=== PATIENT | male | born 1960 | race Caucasian/White ===

== ENCOUNTER 2018-01-19 12:04 | Inpatient (IN) | payer BC ==
[2018-01-19 13:01] VITALS: BMI 31.1
--- NOTE | 2018-01-19 17:12 | HP ---
CIWA Score - CIWA Score Nausea/Vomitin-Mild Nausea/No Vomiting Muscle Tremors: 4-Moderate,w/Arms Extend Anxiety: 4-Mod. Anxious/Guarded Agitation: 4-Moderately Restless Paroxysmal Sweats: 1-Minimal Palms Moist Orientation: 0-Oriented Tacttile Disturbances: 0-None Auditory Disturbances: 0-None Visual Disturbances: 0-None Headache: 0-None Present CIWA-Ar Total Score: 14 Admission ROS S - HPI Chief Complaint: Alcohol withdrawal symptoms Allergies/Adverse Reactions: Allergies Allergy/AdvReac Type Severity Reaction Status Date / Time No Known Allergies Allergy Verified 01/19/18 15:38 History of Present Illness: 57 years old male with a long history of alcohol dependence is seeking admission to detox. Patient has been to previous detox at [facility] and reports 3 years of sobriety. He was discharged from [facility] where he was seen with complaint of left lower extremity pain and swelling. He has medical history of HTN And seizure. This is his first admission to [facility]. He denies suicide attempt and suicidal ideation at this time. His drug screen result was positive for benzodiazepine but he denies use and states that it may have been from his marijuana. - Ebola screening Have you traveled outside of the country in the last 21 days: No (N) Have you had contact with anyone from an Ebola affected area: No Have you been sick,other than usual withdrawal symptoms: No Do you have a fever: No - Review of Systems Constitutional: Chills, Loss of Appetite, Malaise, Night Sweats, Changes in sleep EENT: reports: No Symptoms Reported, Other (uses prescription glasses) Respiratory: reports: No Symptoms reported Cardiac: reports: No Symptoms Reported GI: reports: Nausea, Poor Appetite, Poor Fluid Intake, Abdominal cramping : reports: No Symptoms Reported Musculoskeletal: reports: Back Pain, Muscle Pain Integumentary: reports: Dryness Neuro: reports: Seizure, Tingling, Tremors Endocrine: reports: No Symptoms Reported Hematology: reports: No Symptoms Reported Psychiatric: reports: Orientated x3, Anxious Other Systems: Reviewed and Negative Patient History - Patient Medical History Hx Anemia: No Hx Asthma: No Hx Chronic Obstructive Pulmonary Disease (COPD): No Hx Cancer: No Hx Cardiac Disorders: No Hx Congestive Heart Failure: No Hx Hypertension: Yes (Lisinopril) Hx Hypercholesterolemia: No HX Cerebrovascular Accident: No Hx Seizures: Yes (Not on medication) Hx Diabetes: No Hx Gastrointestinal Disorders: No Hx Liver Disease: No Hx Genitourinary Disorders: No Hx Sexually Transmitted Disorders: No Hx Renal Disease (ESRD): No Hx Thyroid Disease: No Hx Human Immunodeficiency Virus (HIV): No (Negative 2017) Hx Hepatitis C: No Hx Depression: No Hx Suicide Attempt: No (Denies suicide attempt and suicidal ideation at this time) Hx Bipolar Disorder: No Hx Schizophrenia: No - Patient Surgical History Past Surgical History: Yes Hx Neurologic Surgery: No Hx Cataract Extraction: No Hx Cardiac Surgery: No Hx Lung Surgery: No Hx Abdominal Surgery: No Hx Appendectomy: No Hx Cholecystectomy: No Hx Genitourinary Surgery: No Hx Orthopedic Surgery: Yes (L ANKLE SX AND R TIBIA) Anesthesia Reaction: No - PPD History Previous Implant?: Yes Documented Results: Negative w/o proof Implanted On Prior [facility] Admission?: No PPD to be Administered?: Yes - Reproductive History Patient is a Female of Child Bearing Age (11 -55 yrs old): No (MALE) - Smoking Cessation Smoking history: Current every day smoker Have you smoked in the past 12 months: Yes Aproximately how many cigarettes per day: 20 Hx Chewing Tobacco Use: No Initiated information on smoking cessation: Yes 'Breaking Loose' booklet given: 01/19/18 - Substance & Tx. History Hx Alcohol Use: Yes Hx Substance Use: Yes Substance Use Type: Marijuana Hx Substance Use Treatment: Yes ([facility]) - Substances Abused Alcohol Route: Oral Frequency: Daily Amount used: 20/16OZ BEER Age of first use: 13 Date of Last Use: 01/19/18 Marijuana/Hashish Route: Smoking Frequency: 1-2 times per week Amount used: 2 Joints Age of first use: 15 Date of Last Use: 01/18/18 Family Disease History - Family Disease History Family History: Denies Admission Physical Exam [facility] - Vital Signs Vital Signs: Vital Signs - 24 hr 01/19/18 12:56 Temperature 97.0 F L Pulse Rate 73 Respiratory 20 Rate Blood Pressure 163/105 - Physical General Appearance: Yes: Moderate Distress HEENTM: Yes: EOMI, Normal ENT Inspection, Normal Voice, JESUS Respiratory: Yes: Lungs Clear, Normal Breath Sounds, No Respiratory Distress Neck: Yes: Supple Breast: Yes: Breast Exam Deferred Cardiology: Yes: Regular Rhythm, Regular Rate, S1, S2 Abdominal: Yes: Protuberent Genitourinary: Yes: Within Normal Limits Back: Yes: Normal Inspection Musculoskeletal: Yes: Back pain (lower), Muscle Pain Extremities: Yes: Tremors, Other (left lower extremities swelling) Neurological: Yes: Alert, Normal Mood/Affect Integumentary: Yes: Dry Lymphatic: Yes: Within Normal Limits - Diagnostic (1) Alcohol dependence with uncomplicated withdrawal Current Visit: Yes Status: Chronic (2) Hypertension Current Visit: Yes Status: Chronic (3) Seizures Current Visit: Yes Status: Chronic (4) Nicotine dependence Current Visit: Yes Status: Chronic Cleared for Admission [facility] - Detox or Rehab [facility] Level of Care: Medically Managed Detox Regimen/Protocol: Librium S Breath Alcohol Content Breath Alcohol Content: 0 Urine Drug Screen - Results Drug Screen Negative: No Urine Drug Screen Results: THC-Marijuana, BZO-Benzodiazepines
[2018-01-19] MEDS ORDERED: LOPERAMIDE HCL 2 MG CAPSULE PO PRN (17:34)
[2018-01-19] MEDS ORDERED: MAG HYDROX/AL HYDROX/SIMETH 30 ML UNIT-DOSE CUP PO PRN (17:34)
[2018-01-19] MEDS ORDERED: MAGNESIUM HYDROX 2400MG/30ML ORAL SUSPENSION 30 ML CUP PO PRN (17:34)
[2018-01-19] MEDS ORDERED: MENTHOL/PHENOL 1 EACH UD MM PRN (17:34)
[2018-01-19] MEDS ORDERED: chlordiazePOXIDE HCL 25 MG CAPSULE PO PRN (17:34)
[2018-01-19] MEDS ORDERED: P-EPHED 60MG/TRIPROLIDI 2.5MG TABLET PO PRN (17:34)
[2018-01-19] MEDS ORDERED: ACETAMINOPHEN 325 MG TABLET (FP) PO PRN (17:34)
[2018-01-19] MEDS ORDERED: MAGNESIUM CITRATE 300 ML BOTTLE PO PRN (17:34)
[2018-01-19] MEDS ORDERED: NICOTINE POLACRILEX 2 MG GUM BC PRN (17:34)
[2018-01-19] MEDS ORDERED: guaiFENesin/D-METHORPHAN HB 10 ML UNIT-DOSE CUPS PO PRN (17:34)
[2018-01-19] MEDS ORDERED: cloNIDine HCL 0.1 MG TABLET PO ONE (17:37)
[2018-01-19] MEDS: chlordiazePOXIDE HCL 25 MG CAPSULE PO SCH ×2 (18:14→22:54)
[2018-01-19] MEDS ORDERED: MELATONIN 5 MG TABLETS PO PRN (22:00)
[2018-01-19] MEDS: THIAMINE HCL 100 MG TABLET (FP) PO SCH (22:54)
[2018-01-20 01:19] LABS: URINE APPEARANCE CLEAR; URINE BILIRUBIN NEGATIVE (<2.0 mg/dL); URINE BLOOD NEGATIVE (NEGATIVE); URINE COLOR YELLOW; URINE GLUCOSE (UA) 3+ (NEGATIVE); URINE KETONE TRACE (NEGATIVE); URINE LEUK ESTERASE NEGATIVE (NEGATIVE); URINE NITRITE NEGATIVE (NEGATIVE); URINE PROTEIN NEGATIVE (NEGATIVE); URINE UROBILINOGEN NEGATIVE mg/dL (0.2-1.0)
[2018-01-20] MEDS: IBUPROFEN 400 MG TABLET (FP) PO PRN ×2 (03:01→20:20)
[2018-01-20] MEDS: chlordiazePOXIDE HCL 25 MG CAPSULE PO SCH ×4 (05:22→22:06)
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
[2018-01-20] MEDS: PRENATAL VITAMINS W/ FOLIC ACID TABLET (FP) PO SCH (10:33)
[2018-01-20] MEDS: LISINOPRIL 5 MG TABLET (FP) PO SCH (10:33)
[2018-01-20] MEDS: NICOTINE 14 MG/24 HOURS TOPICAL PATCH TD SCH (10:34)
[2018-01-20 12:33] LABS: ALBUMIN 2.9 g/dl (3.4-5.0); ANION GAP 10 (8-16); BLOOD UREA NITROGEN 11 mg/dL (7-18); CALCIUM 8.6 mg/dL (8.5-10.1); CHLORIDE 102 mmol/L (98-107); CO2 27 mmol/L (21-32); CREATININE 0.8 mg/dL (0.7-1.3); GLUCOSE,RANDOM 277 mg/dL (74-106); SGOT/AST 119 U/L (15-37); SGPT/ALT 118 U/L (12-78); SODIUM 139 mmol/L (136-145)
[2018-01-20 12:35] LABS: ALK PHOS 74 U/L (45-117); BILIRUBIN,TOTAL 0.6 mg/dL (0.2-1.0); TOT PROT 6.1 g/dl (6.4-8.2)
[2018-01-20] MEDS: CEPHALEXIN MONOHYDRATE 500 MG CAPSULE (UD) PO SCH ×3 (12:46→23:38)
[2018-01-20 14:30] LABS: HEMATOCRIT 38.4 % (35.4-49); HEMOGLOBIN 12.7 GM/dL (11.7-16.9); MCH 32.1 pg (25.7-33.7); MCHC 33.1 g/dl (32.0-35.9); MEAN CELL VOLUME 97.1 fl (80-96); MEAN PLT VOLUME 9.3 fl (7.5-11.1); PLATELET COUNT 200 K/MM3 (134-434); RBC 3.95 M/mm3 (4.00-5.60); RDW 14.4 % (11.9-15.9); WHITE BLOOD COUNT 5.6 K/mm3 (4.0-10.0)
[2018-01-20] MEDS: THIAMINE HCL 100 MG TABLET (FP) PO SCH (22:06)
[2018-01-21] MEDS: chlordiazePOXIDE HCL 25 MG CAPSULE PO SCH ×2 (05:52→10:11)
[2018-01-21] MEDS: CEPHALEXIN MONOHYDRATE 500 MG CAPSULE (UD) PO SCH ×4 (05:52→23:02)
[2018-01-21] MEDS: LISINOPRIL 5 MG TABLET (FP) PO SCH (10:11)
[2018-01-21] MEDS: PRENATAL VITAMINS W/ FOLIC ACID TABLET (FP) PO SCH (10:11)
[2018-01-21] MEDS: NICOTINE 14 MG/24 HOURS TOPICAL PATCH TD SCH (10:12)
--- NOTE | 2018-01-21 10:43 | EKG ---
Test Reason : Blood Pressure : / mmHG Vent. Rate : 066 BPM Atrial Rate : 066 BPM P-R Int : 116 ms QRS Dur : 090 ms QT Int : 408 ms P-R-T Axes : 069 064 040 degrees QTc Int : 427 ms NORMAL SINUS RHYTHM NORMAL ECG NO PREVIOUS ECGS AVAILABLE Confirmed by MD Wilbert, Tirso ([id number]) on 01/21/2018 10:43:15 AM Referred By: Confirmed By:Tirso Atkins MD
--- NOTE | 2018-01-21 11:32 | PN ---
S CIWA - CIWA Score Nausea/Vomitin-Mild Nausea/No Vomiting Muscle Tremors: 3 Anxiety: 3 Agitation: 3 Paroxysmal Sweats: 1-Minimal Palms Moist Orientation: 0-Oriented Tacttile Disturbances: 1-Very Mild Itch/Numbness Auditory Disturbances: 0-None Visual Disturbances: 0-None Headache: 0-None Present CIWA-Ar Total Score: 12 [facility] Progress Note (SOAP) Subjective: sweat tremor mild gi distress anxiety left leg feel better elevation both legs Objective: 01/21/18 11:32 Vital Signs Temperature 98.1 F 01/21/18 10:49 Pulse Rate 61 01/21/18 10:49 Respiratory Rate 20 01/21/18 10:49 Blood Pressure 144/102 01/21/18 10:49 O2 Sat by Pulse Oximetry (%) Laboratory Last Values WBC 5.6 K/mm3 (4.0-10.0) 01/20/18 07:00 RBC 3.95 M/mm3 (4.00-5.60) L 01/20/18 07:00 Hgb 12.7 GM/dL (11.7-16.9) 01/20/18 07:00 Hct 38.4 % (35.4-49) 01/20/18 07:00 MCV 97.1 fl (80-96) H 01/20/18 07:00 MCH 32.1 pg (25.7-33.7) 01/20/18 07:00 MCHC 33.1 g/dl (32.0-35.9) 01/20/18 07:00 RDW 14.4 % (11.9-15.9) 01/20/18 07:00 Plt Count 200 K/MM3 (134-434) 01/20/18 07:00 MPV 9.3 fl (7.5-11.1) 01/20/18 07:00 Sodium 139 mmol/L (136-145) 01/20/18 07:00 Potassium 4.0 mmol/L (3.5-5.1) 01/20/18 07:00 Chloride 102 mmol/L (98-107) 01/20/18 07:00 Carbon Dioxide 27 mmol/L (21-32) 01/20/18 07:00 Anion Gap 10 (8-16) 01/20/18 07:00 BUN 11 mg/dL (7-18) 01/20/18 07:00 Creatinine 0.8 mg/dL (0.7-1.3) 01/20/18 07:00 Creat Clearance w eGFR > 60 (>60) 01/20/18 07:00 Random Glucose 277 mg/dL (74-106) H 01/20/18 07:00 Calcium 8.6 mg/dL (8.5-10.1) 01/20/18 07:00 Total Bilirubin 0.6 mg/dL (0.2-1.0) 01/20/18 07:00 AST 119 U/L (15-37) H 01/20/18 07:00 ALT 118 U/L (12-78) H 01/20/18 07:00 Alkaline Phosphatase 74 U/L (45-117) 01/20/18 07:00 Total Protein 6.1 g/dl (6.4-8.2) L 01/20/18 07:00 Albumin 2.9 g/dl (3.4-5.0) L 01/20/18 07:00 Urine Color Yellow 01/19/18 23:30 Urine Appearance Clear 01/19/18 23:30 Urine pH 7.0 (5.0-8.0) 01/19/18 23:30 Ur Specific [place] 1.029 (1.001-1.035) 01/19/18 23:30 Urine Protein Negative (NEGATIVE) 01/19/18 23:30 Urine Glucose (UA) 3+ (NEGATIVE) H 01/19/18 23:30 Urine Ketones Trace (NEGATIVE) H 01/19/18 23:30 Urine Blood Negative (NEGATIVE) 01/19/18 23:30 Urine Nitrite Negative (NEGATIVE) 01/19/18 23:30 Urine Bilirubin Negative (<2.0 mg/dL) 01/19/18 23:30 Urine Urobilinogen Negative mg/dL (0.2-1.0) 01/19/18 23:30 Ur Leukocyte Esterase Negative (NEGATIVE) 01/19/18 23:30 lab noted 01/21/18 11:33 repeat sgot sgat 01/21/18 11:34 left leg less swell compared with yesterday less erythema non tenderness Assessment: 01/21/18 11:33 withdrawal sx Plan: continue detox
[2018-01-21] MEDS: chlordiazePOXIDE 5 MG CAPSULE PO SCH ×2 (17:02→22:05)
[2018-01-21] MEDS: THIAMINE HCL 100 MG TABLET (FP) PO SCH (22:04)
[2018-01-21] MEDS: IBUPROFEN 400 MG TABLET (FP) PO PRN (23:26)
[2018-01-22] MEDS: chlordiazePOXIDE 5 MG CAPSULE PO SCH ×2 (05:48→10:23)
[2018-01-22] MEDS: CEPHALEXIN MONOHYDRATE 500 MG CAPSULE (UD) PO SCH ×4 (05:48→23:11)
--- NOTE | 2018-01-22 09:48 | PN ---
[facility] Progress Note (SOAP) Subjective: sweats ,rt leg pain, cellulitis Objective: 01/22/18 09:43 Vital Signs Temperature 98.2 F 01/22/18 09:22 Pulse Rate 70 01/22/18 09:22 Respiratory Rate 20 01/22/18 09:22 Blood Pressure 147/84 01/22/18 09:22 O2 Sat by Pulse Oximetry (%) Laboratory Tests 01/19/18 01/20/18 01/20/18 23:30 07:00 07:00 WBC 5.6 RBC 3.95 L Hgb 12.7 Hct 38.4 MCV 97.1 H MCH 32.1 MCHC 33.1 RDW 14.4 Plt Count 200 MPV 9.3 Sodium 139 Potassium 4.0 Chloride 102 Carbon Dioxide 27 Anion Gap 10 BUN 11 Creatinine 0.8 Creat Clearance w eGFR > 60 Random Glucose 277 H Calcium 8.6 Total Bilirubin 0.6 AST 119 H ALT 118 H Alkaline Phosphatase 74 Total Protein 6.1 L Albumin 2.9 L Urine Color Yellow Urine Appearance Clear Urine pH 7.0 Ur Specific [place] 1.029 Urine Protein Negative Urine Glucose (UA) 3+ H Urine Ketones Trace H Urine Blood Negative Urine Nitrite Negative Urine Bilirubin Negative Urine Urobilinogen Negative Ur Leukocyte Esterase Negative RPR Titer 01/20/18 07:00 WBC RBC Hgb Hct MCV MCH MCHC RDW Plt Count MPV Sodium Potassium Chloride Carbon Dioxide Anion Gap BUN Creatinine Creat Clearance w eGFR Random Glucose Calcium Total Bilirubin AST ALT Alkaline Phosphatase Total Protein Albumin Urine Color Urine Appearance Urine pH Ur Specific [place] Urine Protein Urine Glucose (UA) Urine Ketones Urine Blood Urine Nitrite Urine Bilirubin Urine Urobilinogen Ur Leukocyte Esterase RPR Titer Nonreactive pt aox3 in nad ambulating rt leg swelling and mild redness Assessment: 01/22/18 09:44 withdrawal sx's dm -glucose 277 rt leg cellulitis improving Plan: cont. 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
[2018-01-22] MEDS: PRENATAL VITAMINS W/ FOLIC ACID TABLET (FP) PO SCH (10:23)
[2018-01-22] MEDS: LISINOPRIL 5 MG TABLET (FP) PO SCH (10:23)
[2018-01-22] MEDS: NICOTINE 14 MG/24 HOURS TOPICAL PATCH TD SCH (10:25)
[2018-01-22 11:01] LABS: SGOT/AST 50 U/L (15-37); SGPT/ALT 105 U/L (12-78)
[2018-01-22] MEDS: GABAPENTIN 100 MG CAPSULE (FP) PO SCH ×2 (13:38→22:07)
[2018-01-22] MEDS: chlordiazePOXIDE HCL 10 MG CAPSULE PO SCH ×2 (16:55→22:07)
[2018-01-22] MEDS: hydrOXYzine PAMOATE 50 MG CAPSULE (FP) PO PRN ×2 (18:45→22:07)
[2018-01-22] MEDS: THIAMINE HCL 100 MG TABLET (FP) PO SCH (22:07)
[2018-01-23] MEDS: CEPHALEXIN MONOHYDRATE 500 MG CAPSULE (UD) PO SCH ×2 (05:38→11:51)
[2018-01-23] MEDS: chlordiazePOXIDE HCL 10 MG CAPSULE PO SCH ×2 (05:38→10:30)
[2018-01-23] MEDS: GABAPENTIN 100 MG CAPSULE (FP) PO SCH (05:38)
--- NOTE | 2018-01-23 08:59 | DS ---
[facility] Detox Discharge Summary Admission Date: 01/19/18 Discharge Date: 01/23/18 - History Present History: Alcohol Dependence Additional Comments: health teaching no concentrated sugar, weight loss, avoid carbohydrate and follow dietary recommendation - Physical Exam Results Vital Signs: Vital Signs Temperature 97.9 F 01/23/18 06:00 Pulse Rate 66 01/23/18 07:07 Respiratory Rate 18 01/23/18 07:07 Blood Pressure 141/80 01/23/18 07:07 O2 Sat by Pulse Oximetry (%) Pertinent Admission Physical Exam Findings: withdrawal sx Vital Signs Temperature 97.9 F 01/23/18 06:00 Pulse Rate 66 01/23/18 07:07 Respiratory Rate 18 01/23/18 07:07 Blood Pressure 141/80 01/23/18 07:07 O2 Sat by Pulse Oximetry (%) Laboratory Last Values WBC 5.6 K/mm3 (4.0-10.0) 01/20/18 07:00 RBC 3.95 M/mm3 (4.00-5.60) L 01/20/18 07:00 Hgb 12.7 GM/dL (11.7-16.9) 01/20/18 07:00 Hct 38.4 % (35.4-49) 01/20/18 07:00 MCV 97.1 fl (80-96) H 01/20/18 07:00 MCH 32.1 pg (25.7-33.7) 01/20/18 07:00 MCHC 33.1 g/dl (32.0-35.9) 01/20/18 07:00 RDW 14.4 % (11.9-15.9) 01/20/18 07:00 Plt Count 200 K/MM3 (134-434) 01/20/18 07:00 MPV 9.3 fl (7.5-11.1) 01/20/18 07:00 Sodium 139 mmol/L (136-145) 01/20/18 07:00 Potassium 4.0 mmol/L (3.5-5.1) 01/20/18 07:00 Chloride 102 mmol/L (98-107) 01/20/18 07:00 Carbon Dioxide 27 mmol/L (21-32) 01/20/18 07:00 Anion Gap 10 (8-16) 01/20/18 07:00 BUN 11 mg/dL (7-18) 01/20/18 07:00 Creatinine 0.8 mg/dL (0.7-1.3) 01/20/18 07:00 Creat Clearance w eGFR > 60 (>60) 01/20/18 07:00 Random Glucose 277 mg/dL (74-106) H 01/20/18 07:00 Calcium 8.6 mg/dL (8.5-10.1) 01/20/18 07:00 Total Bilirubin 0.6 mg/dL (0.2-1.0) 01/20/18 07:00 AST 50 U/L (15-37) H D 01/22/18 07:00 ALT 105 U/L (12-78) H 01/22/18 07:00 Alkaline Phosphatase 74 U/L (45-117) 01/20/18 07:00 Total Protein 6.1 g/dl (6.4-8.2) L 01/20/18 07:00 Albumin 2.9 g/dl (3.4-5.0) L 01/20/18 07:00 Urine Color Yellow 01/19/18 23:30 Urine Appearance Clear 01/19/18 23:30 Urine pH 7.0 (5.0-8.0) 01/19/18 23:30 Ur Specific [place] 1.029 (1.001-1.035) 01/19/18 23:30 Urine Protein Negative (NEGATIVE) 01/19/18 23:30 Urine Glucose (UA) 3+ (NEGATIVE) H 01/19/18 23:30 Urine Ketones Trace (NEGATIVE) H 01/19/18 23:30 Urine Blood Negative (NEGATIVE) 01/19/18 23:30 Urine Nitrite Negative (NEGATIVE) 01/19/18 23:30 Urine Bilirubin Negative (<2.0 mg/dL) 01/19/18 23:30 Urine Urobilinogen Negative mg/dL (0.2-1.0) 01/19/18 23:30 Ur Leukocyte Esterase Negative (NEGATIVE) 01/19/18 23:30 RPR Titer Nonreactive (NONREACTIVE) 01/20/18 07:00 lab noted - Treatment Hospital Course: Detox Protocol Followed, Detoxed Safely, Responded well, Discharged Condition Good, Rehab Referral Accepted Patient has Accepted a Rehab Referral to: [facility] - Medication Discharge Medications: Ambulatory Orders Cephalexin Monohydrate [Keflex -] 500 mg PO Q6HPO #30 capsule 01/22/18 Gabapentin [Neurontin -] 100 mg PO TID #90 capsule 01/22/18 Lisinopril 5 mg PO DAILY #30 tablet 01/22/18 - AMA Did Patient Leave Against Medical Advice: No
--- NOTE | 2018-01-23 09:07 | PN ---
S Progress Note (SOAP) Subjective: denies alcohol withdrawal sx feeling better denies pain acklnowledged left leg elevation and follow up with primary care provider acklnowledged dietary regimen for low carbohydrate and no concentrated sugar Objective: 01/23/18 09:04 cardiac s1s2 lung clear bilaterally abdomen soft none tenderness extremities full range of motion denies left leg pain full weight bearing without difficulty Assessment: 01/23/18 09:05 completed alcohol detox Plan: aftercare [facility]
[2018-01-23] MEDS: PRENATAL VITAMINS W/ FOLIC ACID TABLET (FP) PO SCH (09:14)
[2018-01-23] MEDS: LISINOPRIL 5 MG TABLET (FP) PO SCH (09:14)
[2018-01-23 10:24] VITALS: BP 150/88; PULSE 84; TEMP 98.4
[2018-01-23] MEDS: NICOTINE 14 MG/24 HOURS TOPICAL PATCH TD SCH (10:29)
== END 2018-01-23 13:20 | disposition home or self-care (01) | DRG 775 ==
LOC: YASAS 12:04 → Y6N 17:15
PROVIDERS: ADMIT Internal Medicine; ATTEND Internal Medicine
PROC: HZ2ZZZZ Detoxification Services for Substance Abuse Treatment (ICD-10-PCS; principal; 2018-01-19)
DX: F10.230 Alcohol dependence with withdrawal, uncomplicated (principal); F13.10 Sedative, hypnotic or anxiolytic abuse, uncomplicated; F12.10 Cannabis abuse, uncomplicated; I10 Essential (primary) hypertension; E11.9 Type 2 diabetes mellitus without complications; F19.24 Other psychoactive substance dependence with psychoactive substance-induced mood disorder; L03.90 Cellulitis, unspecified
CPT/HCPCS: 36415; 80053; 81003; 84450; 84460; 85027; 86593; 93005; 93010; J0735